=== PATIENT | female | born 1995 | race Caucasian/White ===

== ENCOUNTER 2020-04-13 13:52 | Emergency (ER) | payer OTHER, SELFPAY ==
[2020-04-13 14:00] VITALS: PULSE 88; RESP 18; TEMP 37.6
[2020-04-13 14:01] VITALS: BP 122/74; PULSE 110; RESP 16; TEMP 37.7; O2SAT 100; BMI 20.7
--- NOTE | 2020-04-13 14:12 | ED_ITS ---
HPI - General Adult General Chief complaint: General Medical Stated complaint: LUMP ON TONSILS Time Seen by Provider: 04/13/20 13:58 Source: patient Mode of arrival: ambulatory Limitations: no limitations History of Present Illness HPI narrative: Patient is a 24-year-old female with no significant past medical history who presents complaining of a small white area of her left tonsil that seems to be getting bigger over the last 2 weeks and is becoming more painful. She states she thought it was a stone as her sister has stones but she is unable to remove it and it does not feel hard enough to be a stone. She states she has no trouble swallowing but can definitely feel it there when she swallows, denies any trouble breathing. Denies fever chills cough or any other upper respiratory complaints. Patient states she has never had it evaluated because she does not have a primary care doctor. Onset (ago): year(s) Location: mouth Radiation: non-radiation Severity: moderate Severity scale (1-10): 4 Quality: dull and constant Pain Consistency: constant Relieving factors: rest Exacerbating factors: eating Associated symptoms: denies other symptoms Related Data Allergies Allergy/AdvReac Type Severity Reaction Status Date / Time No Known Allergies Allergy Verified 04/13/20 14:04 [No Known Allergies*] Review of Systems Review of Systems: See HPI Yes all other systems are reviewed and are negative [facility] Past Medical History Medical History No known health problems Social History Social History Advance Directives: No Advance Directives Information Provided: No Physical Exam Vital Signs: Vital Signs: Vital Signs Temp Pulse Resp BP Pulse Ox 04/13/20 14:01 99.9 F 110 H 16 122/74 100 04/13/20 14:00 99.6 F 88 18 Body Mass Index 20.7 Const: General: cooperative, healthy appearing, comfortable and no acute distress Nutritional Appearance: average body habitus Orientation/consciousness: patient oriented x3 Limitations: no limitations HENMT: Head: Yes normal to inspection Ears: hearing grossly normal bilate rally General nose exam: Normal external nose present Face and sinus: Yes normal facial exam Mouth: Normal oral and palatal mucosa present, lip normal, tongue normal, moist mucous membranes, no drooling, No mouth trauma, no muffled voice and no trismus Mouth/tongue images: 1. 0.5 cm round soft area, white in color, no bleeding, no evidence of infection Teeth and gingiva: dentition normal Eyes: General: appearance normal, both eyes and all related structures Resp: Effort & Inspection: normal respiratory effort and able to speak in complete sentences Skin: General skin exam: no rashes or lesions noted Neuro: General: patient oriented x3 Course Course Course Narrative: 24-year-old female with no significant past medical history presenting with small white area on left tonsil which has been there for at least a year but is getting more painful over the past 2 weeks. Patient has no PCP. Strep swab is negative. After a short discussion, I advised she should follow-up with an ENT specialist. Medical Decision Making Differential Diagnosis Differential Diagnosis: strep, tonsil cyst, tonsil stone, tonsil abscess or cancer less likely Lab Data Lab results reviewed: Yes I reviewed the patient's lab results. Lab results narrative: Name: Eleonora Chapman Age/Sex: 24/F : 1995 Unit#: [id number] Attend Dr: Naheed Leach MD Re04/13/20 Status: [facility] Specimen: [id number] Collected: 04/13/20 Status: RES Req#: [id number] Received: 04/13/20 Source: Throat Sp Desc: Subm Dr: CHARANJIT HIDALGO Ordered: Strep A Screen, Throat Culture Procedure Result Verified Site Rapid Strep A Screen Final 04/13/20 Rapid Strep A Screen Negative A negative screen result does not rule out the presence of low numbers of Group A Beta-hemolytic streptococci. Culture confirmation of a negative Rapid Strep A Screen will be performed automatically. Throat Culture PENDING Discharge Plan Discharge Clinical Impression: Tonsil pain Patient Disposition: Home, Self-Care Additional Instructions: Follow-up with healthcare is very important! I have also provided you with a list of primary care doctors. It is important to establish care with one. Referrals: Zane Cota [Physician] - 2 days Interventions: ED Discharge Assessment Last Done: 04/13/20 14:45 Discharge Date/Time: 04/13/20 14:45
== END 2020-04-13 14:45 | disposition home or self-care (01) ==
PROVIDERS: Emergency Provider Emergency Medicine
DX: J03.90 Acute tonsillitis, unspecified (principal)
CPT/HCPCS: 87071; 87147; 99283

== ENCOUNTER 2020-07-15 12:44 | Outpatient (REF) | payer SELFPAY ==
--- NOTE | 2020-07-15 | US_ITS ---
EXAMINATION: US DIAGNOSTIC ULTRASOUND BREAST, RIGHT US DIAGNOSTIC ULTRASOUND BREAST, LEFT CLINICAL INFORMATION: 24-year-old with palpable mass inferior lateral right breast for approximately 6 months with associated tenderness. Recent palpable area of concern also noted upper outer left breast. No prior breast imaging. No known family history breast cancer. COMPARISON: None (current study represents initial baseline exam). TECHNIQUE: Ultrasound of each breast is targeted to the areas of clinical concern, left upper outer quadrant and right lower outer quadrant. Grayscale imaging and color Doppler are performed without and with harmonics. Patient is able to point to the areas of concern at time of imaging. FINDINGS: Right: There is an oval hypoechoic mass 7:00 position 4 cm from nipple at site of palpable concern residing just beneath the skin measuring approximately 1.3 x 1.2 x 0.7 cm. Lesion is wider than tall. There is no increased or decreased through transmission of sound or hyperemia. No skin thickening or edema tracking in soft tissue planes. Left: There is no focal suspicious finding. There is no cystic or solid mass, architectural abnormality, duct ectasia, or edema in the soft tissue planes. No ultrasound correlate for patient's symptoms. Results are discussed with the patient at time of visit. 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 Management options discussed including serial surveillance as well as ultrasound-guided core sampling. Patient prefers core biopsy. There is no ultrasound correlate for finding on left. Patient may consider further evaluation with surgeon. US/US breast LT limited IMPRESSION: 1. Right: Solid mass at site of clinical palpable concern 7:00 position measuring 1.3 cm, possibly fibroadenoma. 2. Left: Unremarkable. No ultrasound correlate for patient's clinical concern. ASSESSMENT: BI-RADS 4: Suspicious (4A: Low suspicion for malignancy) RECOMMENDATION: 1. Right: Ultrasound-guided core biopsy. 2. Left: Patient should be managed based on the clinical impression. If clinically indicated, further evaluation may be considered with surgical consult. Decision to proceed with biopsy should be based on clinical grounds and degree of clinical concern.
== END 2020-07-15 12:45 | disposition home or self-care (01) ==
LOC: HO.MAMMO 12:44
PROVIDERS: PCP Hospitalist; Visit Provider Hospitalist
DX: N63.21 Unspecified lump in the left breast, upper outer quadrant (principal)
CPT/HCPCS: 76642

== ENCOUNTER 2020-08-13 09:13 | Outpatient (REF) | payer OTHER, SELFPAY ==
--- NOTE | ~2020-08-13 | MM_ITS ---
EXAMINATION: ULTRASOUND GUIDED CORE BIOPSY BREAST, RIGHT POST PROCEDURE DIGITAL MAMMOGRAM, RIGHT CLINICAL INFORMATION: Palpable concern lower outer right breast with associated tenderness. Hypoechoic lesion on targeted ultrasound, suspect fibroadenoma. Age 24. COMPARISON: Targeted ultrasound breast 07/15/2020. FINDINGS: Proper informed consent is obtained from the patient after discussion of the procedure, potential risks and complications, and alternatives, including serial follow-up ultrasound. Patient was given an opportunity for questions. The patient appeared to understand. The patient consented to the procedure and signed the consent form. GUIDANCE: Ultrasound-guided; aseptic technique. LESION: Hypoechoic lesion 7:00 position 4 cm from nipple 1.3 cm. APPROACH: Lateral medial. ANESTHESIA: 7 mL 1% lidocaine. DERMATOTOMY: Single skin marti dermatotomy performed. NEEDLE: 14-gauge Achieve core biopsy device with 13.5-gauge co-axial guide needle. CORES: 5. CLIP: HydroMARK; shape: butterfly. POST PROCEDURE UNILATERAL DIGITAL MAMMOGRAM: The post biopsy mammogram is performed in separate room using separate digital mammography equipment from the biopsy procedure. Exaggerated CC and MLO x2 views are obtained. views are obtained. The breasts are heterogeneously dense, which may obscure small masses (breast composition category: c). The clip marker is not visualized within the [id number]. There is no gross hematoma. As the clip marker is visible at time of ultrasound-guided deployment, additional mammography not performed. The patient tolerated the procedure well. No immediate complications. Home instructions reviewed with the patient. Final pathology results are pending. MM/MM diagnostic mammo unilat RT IMPRESSION: 1. Status post ultrasound-guided core biopsy right breast. 2. Clip placed: HydroMARK; shape: butterfly. 3. Pathology pending. An addendum report will be issued.
== END 2020-08-13 09:14 | disposition home or self-care (01) ==
LOC: HO.MAMMO 09:13
PROVIDERS: Visit Provider Surgery
DX: N63.13 Unspecified lump in the right breast, lower outer quadrant (principal); N64.4 Mastodynia; M79.7 Fibromyalgia
CPT/HCPCS: 19083; 77065; 88305

== ENCOUNTER 2020-11-28 14:13 | Outpatient (REF) | payer OTHER, SELFPAY ==
[2020-11-28 17:25] LABS: HCG Quantitative 5 mIU/mL
== END 2020-11-28 14:14 | disposition home or self-care (01) ==
LOC: HO.HMGCLDS 14:13
PROVIDERS: PCP Hospitalist; Visit Provider Nurse Practitioner Family
DX: N64.4 Mastodynia (principal); Z32.01 Encounter for pregnancy test, result positive
CPT/HCPCS: 36415; 84702

== ENCOUNTER 2020-12-03 16:34 | Outpatient (REF) | payer OTHER, SELFPAY ==
[2020-12-03 18:07] LABS: HCG Quantitative < 2 mIU/mL
== END 2020-12-03 16:35 | disposition home or self-care (01) ==
LOC: HO.LAB 16:34
PROVIDERS: PCP Hospitalist; Visit Provider Family Medicine
DX: N92.6 Irregular menstruation, unspecified (principal)
CPT/HCPCS: 36415; 84702

== ENCOUNTER 2021-01-05 20:44 | Emergency (ER) | payer OTHER, SELFPAY ==
[2021-01-05 20:56] VITALS: BP 124/57; PULSE 81; RESP 18; TEMP 36.4; O2SAT 96; BMI 21.7
[2021-01-05 21:18] LABS: Glucose Urine UA NEG (NEG); Leukocyte Esterase Urine NEG (NEG); Nitrite Urine NEG (NEG); Urine Blood NEG (NEG); Urine Ketones NEG (NEG); Urine Protein NEG (NEG-TRACE)
[2021-01-05 21:21] LABS: Appearance Urine CLEAR; Color Urine YELLOW
[2021-01-05 23:08] LABS: UPreg QC Valid YES; Urine Pregnancy NEGATIVE (NEGATIVE)
[2021-01-05 23:10] LABS: MANUAL DIFF FLAG NO
[2021-01-05 23:11] LABS: Basophils Percent Auto 0.5 % (0-2); Eosinophils Absolute Auto 0.1 X10*3/uL (0.0-0.4); Eosinophils Percent Auto 2.1 % (0-4); Hematocrit 34.9 % (37-47); Hemoglobin 11.5 g/dl (12.0-16.0); Imm Gran Abs Auto 0.01 X10*3/uL (0.00-0.03); Imm Gran Pct Auto 0.2 % (0.0-0.4); Lymphocytes Absolute Auto 2.3 X10*3/uL (1.2-4.9); Lymphocytes Percent Auto 53.4 % (20-40); Mean Corpuscular Hemoglobin 28.3 pg (27.0-33.0); Mean Platelet Volume 10.4 fL (9.4-12.3); Monocytes Absolute Auto 0.4 X10*3/uL (0.1-1.2); Monocytes Percent Auto 9.1 % (2-11); Neutrophils Absolute Auto 1.5 X10*3/uL (2.0-8.3); Neutrophils Percent Auto 34.7 % (45-73); Platelet Count 208 X10*3/uL (160-400); Red Blood Count 4.06 X10*6/uL (4.20-5.50); Red Cell Distribution Width 12.3 % (11.0-16.0); White Blood Count 4.3 X10*3/uL (4.8-10.8)
[2021-01-05 23:37] LABS: Alanine Aminotransferase 12 U/L (0-31); Albumin Level 4.2 g/dL (3.5-5.0); Alkaline Phosphatase 59 U/L (39-117); Anion Gap 9 (12-20); Aspartate Amino Transferase 16 U/L (5-31); Bilirubin Total 0.4 mg/dL (0.0-1.0); Blood Urea Nitrogen 8 mg/dL (9-16); Calcium 9.5 mg/dL (8.4-10.2); Carbon Dioxide 29 mmol/L (22-29); Chloride 107 mmol/L (96-108); Creatinine Clr Calc Pharmacy 87.6; Estimated Glomerular Filt Rate > 60; Glucose Random 88 mg/dL (60-115); Potassium 3.6 mmol/L (3.3-5.1); Sodium 141 mmol/L (135-145); Total Protein 6.7 g/dL (6.5-8.0)
--- NOTE | 2021-01-06 00:27 | ED.GENADULT ---
HPI - General Adult General Chief complaint: General Medical Stated complaint: ovary pain Time Seen by Provider: 01/06/21 00:27 Source: patient Mode of arrival: ambulatory Limitations: no limitations History of Present Illness HPI narrative: Patient complaining of left lower abdominal pain off and on for last 4 months radiating to her left leg feels that she might have ovarian problem has not seen her doctor yet no difficulty in urination no fever no chills bowel tones are normal no nausea no vomiting patient eating drinking fine denies any back pain Related Data Previous Rx's Medication Instructions Recorded vitamin no.102-iron 90 1 cap PO DAILY 30 Days #30 cap 12/04/20 mg-folate 1 mg-dha 200 mg capsule ibuprofen 600 mg PO Q6H PRN #20 tab 01/06/21 Allergies Allergy/AdvReac Type Severity Reaction Status Date / Time No Known Allergies Allergy Verified 01/05/21 20:56 [No Known Allergies*] Review of Systems Review of Systems: Yes all other systems are reviewed and are negative [facility] Past Medical History Medical History No known health problems Social History Social History Alcohol intake: current Alcohol intake frequency: holidays/special occasions only Advance Directives: No Advance Directives Information Provided: No Physical Exam Vital Signs: Vital Signs: Last Vital Signs Temp 97.5 F 01/05/21 20:56 Pulse 81 01/05/21 20:56 Resp 18 01/05/21 20:56 BP 124/57 L 01/05/21 20:56 Pulse Ox 96 01/05/21 20:56 Body Mass Index 21.7 Appearance: Alert. Oriented X3. No acute distress. Eyes: PERRLA, No Nystagmus ENT: Pharynx normal. Oral Mucosa moist Neck: Normal inspection. Neck supple. CVS: Normal heart rate and rhythm. Pulses normal. Respiratory: No respiratory distress. Equal air entry bilateral, Abdomen: Soft and nontender. No percussion tenderness in pelvic area Bowel sounds are present, no mass palpable, no CVA tenderness back : No spinal tenderness range of movements full SLR negative bilaterally Skin: Skin warm and dry. Normal skin color. Normal skin turgor. Extremities: No lower extremity edema. No calf tenderness Neuro: Oriented X 3. No motor deficit. Medical Decision Making MDM Narrative Medical decision making narrative: Patient nonspecific pain in the lower abdomen going to the left leg, labs are stable white counts are normal urine is negative on exam the patient does not have any tenderness patient advised to follow with PCP for musculoskeletal pain Lab Data Lab results reviewed: Yes I reviewed the patient's lab results. Result diagrams: 01/05/21 23:00 01/05/21 23:00 Labs: Lab Results 01/05/21 01/05/21 01/05/21 Range/Units 21:10 22:48 23:00 WBC 4.3 L (4.8-10.8) X10*3/uL RBC 4.06 L (4.20-5.50) X10*6/uL Hgb 11.5 L (12.0-16.0) g/dl Hct 34.9 L (37-47) % MCV 86.0 (80-98) fL MCH 28.3 (27.0-33.0) pg MCHC 33.0 (31.0-35.0) g/dl RDW 12.3 (11.0-16.0) % Plt Count 208 (160-400) X10*3/uL MPV 10.4 (9.4-12.3) fL Immature Gran % (Auto) 0.2 (0.0-0.4) % Neut % (Auto) 34.7 L (45-73) % Lymph % (Auto) 53.4 H (20-40) % [place] % (Auto) 9.1 (2-11) % Eos % (Auto) 2.1 (0-4) % Baso % (Auto) 0.5 (0-2) % Lymph # (Auto) 2.3 (1.2-4.9) X10*3/uL [place] # (Auto) 0.4 (0.1-1.2) X10*3/uL Eos # (Auto) 0.1 (0.0-0.4) X10*3/uL Baso # (Auto) 0.0 (0.0-0.2) X10*3/uL Abs Immat Gran (auto) 0.01 (0.00-0.03) X10*3/uL Absolute Neuts (auto) 1.5 L (2.0-8.3) X10*3/uL Absolute Nucleated RBC 0.000 (0.0-0.012) X10*3/uL Nucleated RBC % (auto) 0.0 (0.0-0.2) /100WBC Sodium (135-145) mmol/L Potassium (3.3-5.1) mmol/L Chloride (96-108) mmol/L Carbon Dioxide (22-29) mmol/L Anion Gap (12-20) BUN (9-16) mg/dL Creatinine (0.5-1.4) mg/dL Estim Creat Clear Calc Estimated GFR Random Glucose (60-115) mg/dL Calcium (8.4-10.2) mg/dL Total Bilirubin (0.0-1.0) mg/dL AST (5-31) U/L ALT (0-31) U/L Alkaline Phosphatase (39-117) U/L Total Protein (6.5-8.0) g/dL Albumin (3.5-5.0) g/dL Urine Color YELLOW Urine Appearance CLEAR Urine pH 6.0 (5.0-8.0) Ur Specific [place] 1.010 (1.005-1.025) Urine Protein NEG (NEG-TRACE) MG/DL Urine Glucose (UA) NEG (NEG) MG/DL Urine Ketones NEG (NEG) MG/DL Urine Blood NEG (NEG) Urine Nitrite NEG (NEG) Ur Leukocyte Esterase NEG (NEG) Urine Test NEGATIVE (NEGATIVE) 01/05/21 Range/Units 23:00 WBC (4.8-10.8) X10*3/uL RBC (4.20-5.50) X10*6/uL Hgb (12.0-16.0) g/dl Hct (37-47) % MCV (80-98) fL MCH (27.0-33.0) pg MCHC (31.0-35.0) g/dl RDW (11.0-16.0) % Plt Count (160-400) X10*3/uL MPV (9.4-12.3) fL Immature Gran % (Auto) (0.0-0.4) % Neut % (Auto) (45-73) % Lymph % (Auto) (20-40) % [place] % (Auto) (2-11) % Eos % (Auto) (0-4) % Baso % (Auto) (0-2) % Lymph # (Auto) (1.2-4.9) X10*3/uL [place] # (Auto) (0.1-1.2) X10*3/uL Eos # (Auto) (0.0-0.4) X10*3/uL Baso # (Auto) (0.0-0.2) X10*3/uL Abs Immat Gran (auto) (0.00-0.03) X10*3/uL Absolute Neuts (auto) (2.0-8.3) X10*3/uL Absolute Nucleated RBC (0.0-0.012) X10*3/uL Nucleated RBC % (auto) (0.0-0.2) /100WBC Sodium 141 (135-145) mmol/L Potassium 3.6 (3.3-5.1) mmol/L Chloride 107 (96-108) mmol/L Carbon Dioxide 29 (22-29) mmol/L Anion Gap 9 L (12-20) BUN 8 L (9-16) mg/dL Creatinine 0.74 (0.5-1.4) mg/dL Estim Creat Clear Calc 87.6 Estimated GFR > 60 Random Glucose 88 (60-115) mg/dL Calcium 9.5 (8.4-10.2) mg/dL Total Bilirubin 0.4 (0.0-1.0) mg/dL AST 16 (5-31) U/L ALT 12 (0-31) U/L Alkaline Phosphatase 59 (39-117) U/L Total Protein 6.7 (6.5-8.0) g/dL Albumin 4.2 (3.5-5.0) g/dL Urine Color Urine Appearance Urine pH (5.0-8.0) Ur Specific [place] (1.005-1.025) Urine Protein (NEG-TRACE) MG/DL Urine Glucose (UA) (NEG) MG/DL Urine Ketones (NEG) MG/DL Urine Blood (NEG) Urine Nitrite (NEG) Ur Leukocyte Esterase (NEG) Urine Test (NEGATIVE) Discharge Plan Discharge Clinical Impression: Musculoskeletal leg pain Qualifiers: Laterality: left Qualified Code(s): M79.605 - Pain in left leg Patient Disposition: Home, Self-Care Instructions: Musculoskeletal Pain (ED) Additional Instructions: Drink plenty of fluids Ibuprofen for pain Follow with PCP Prescriptions: New ibuprofen 600 mg tablet 600 mg PO Q6H PRN (Reason: pain) Qty: 20 RF: 0 No Action PNV [id number] 90 mg iron- 1 mg-200 mg capsule 1 cap PO DAILY 30 Days Qty: 30 RF: 3 Stand Alone Forms: Work/School Release
[2021-01-06 01:07] VITALS: BP 104/71; PULSE 73; RESP 16; O2SAT 100
== END 2021-01-06 01:14 | disposition home or self-care (01) ==
PROVIDERS: Emergency Provider Internal Medicine; PCP Hospitalist
DX: M79.605 Pain in left leg (principal); R10.32 Left lower quadrant pain
CPT/HCPCS: 36415; 80053; 81003; 81025; 85025; 99283; 99284

== ENCOUNTER 2021-01-29 10:18 | Outpatient (REF) | payer OTHER, SELFPAY ==
[2021-01-29 11:45] LABS: HCG Quantitative 2659 mIU/mL
== END 2021-01-29 10:19 | disposition home or self-care (01) ==
LOC: HO.HMGCLDS 10:18
PROVIDERS: PCP Hospitalist; Visit Provider Hospitalist
DX: N91.2 Amenorrhea, unspecified (principal)
CPT/HCPCS: 36415; 84702

== ENCOUNTER 2021-02-11 13:02 | Outpatient (REF) | payer OTHER, SELFPAY ==
--- NOTE | ~2021-02-11 | US_ITS ---
EXAMINATION: US OBSTETRICAL ULTRASOUND CLINICAL INFORMATION: Encounter for . COMPARISON: None LMP: 12/27/2020 Gestational age by maternal dates is 6 weeks 4 days. Estimated date of delivery by maternal dates is 10/03/2021. TECHNIQUE: Transabdominal ultrasound of the pelvis was performed. FINDINGS: There is a single, intrauterine gestational sac with a visible yolk sac, embryo/fetus, and cardiac activity. There is no significant subchorionic hemorrhage or hematoma. HR: 136 beats per minute CRL (crown rump length): 0.52 cm (6 weeks and 2 days +/- 4 days) LOULOU (estimated date of delivery): 10/05/2021 +/- 4 days MATERNAL ADNEXA: The right maternal ovary measures 2.4 x 1.9 x 1.2 cm. The left maternal ovary measures 4.0 x 4.2 x 4.1 cm. There is an anechoic cysts measuring 3.4 x 3.0 x 3.2 cm. There is no significant maternal adnexal mass. No maternal pelvic ascites. US/US OB <= 14 weeks fetus IMPRESSION: 1. Single, intrauterine gestation with ultrasound gestational age of 6 weeks 2 days +/- 4 days. 2. Estimated date of delivery is 10/05/2021 +/- 4 days. 3. No maternal adnexal mass or pelvic ascites.
== END 2021-02-11 13:03 | disposition home or self-care (01) ==
LOC: HO.LAB 13:02
PROVIDERS: PCP Hospitalist; Visit Provider Advanced Practice Midwife
DX: Z34.91 Encounter for supervision of normal pregnancy, unspecified, first trimester (principal)
CPT/HCPCS: 36415; 76801; 81025; 84702

== ENCOUNTER 2022-07-02 11:00 | Outpatient (RCR) | payer MEDICAID, SELFPAY | END 2022-08-11 10:52 | disposition home or self-care (01) | LOC: HO.PT 11:00 | PROVIDERS: PCP Family Medicine; Visit Provider Advanced Practice Midwife | DX: R10.2 Pelvic and perineal pain (principal); N94.10 Unspecified dyspareunia | CPT/HCPCS: 97110; 97140; 97161 ==

== ENCOUNTER 2023-12-01 09:26 | Outpatient (REF) | payer MEDICAID, SELFPAY ==
[2023-12-01 14:06] LABS: MANUAL DIFF FLAG NO
[2023-12-01 14:19] LABS: Estimated Average Glucose 91 mg/dL; Hemoglobin A1c % 4.8 % (<6.0)
[2023-12-01 14:21] LABS: Basophils Percent Auto 0.9 % (0-2); Eosinophils Absolute Auto 0.1 X10*3/uL (0.0-0.4); Eosinophils Percent Auto 2.1 % (0-4); Hematocrit 35.2 % (37.0-47.0); Hemoglobin 11.4 g/dl (12.0-16.0); Imm Gran Abs Auto 0.01 X10*3/uL (0.00-0.03); Imm Gran Pct Auto 0.3 % (0.0-0.4); Lymphocytes Absolute Auto 1.4 X10*3/uL (1.2-4.9); Lymphocytes Percent Auto 42.3 % (20-40); Mean Corpuscular HGB Conc 32.4 g/dl (31.0-35.0); Mean Corpuscular Hemoglobin 28.1 pg (27.0-33.0); Mean Corpuscular Volume 86.7 fL (80.0-98.0); Mean Platelet Volume 11.5 fL (9.4-12.3); Monocytes Absolute Auto 0.4 X10*3/uL (0.1-1.2); Monocytes Percent Auto 11.5 % (2-11); Neutrophils Absolute Auto 1.4 x10*3/uL (2.0-8.3); Neutrophils Percent Auto 42.9 % (45-73); Platelet Count 182 X10*3/uL (160-400); Red Blood Count 4.06 X10*6/uL (4.20-5.50); Red Cell Distribution Width 12.8 % (11.0-16.0); White Blood Count 3.3 X10*3/uL (4.8-10.8)
[2023-12-01 14:30] LABS: Alanine Aminotransferase 9 U/L (0-31); Albumin Level 3.9 g/dL (3.5-5.0); Alkaline Phosphatase 41 U/L (39-117); Anion Gap 12 (12-20); Aspartate Amino Transferase 16 U/L (5-31); Bilirubin Total 0.5 mg/dL (0.0-1.0); Blood Urea Nitrogen 14 mg/dL (9-16); Calcium 8.9 mg/dL (8.4-10.2); Carbon Dioxide 24 mmol/L (22-29); Chloride 108 mmol/L (96-108); Estimated Glomerular Filt Rate > 60; Glucose Random 75 mg/dL (60-115); Iron 124 mcg/dL (30-160); Percent Iron Saturation 60 % (15-50); Sodium 140 mmol/L (135-145); Total Iron Binding Capacity 207 mcg/dL (228-428); Total Protein 6.3 g/dL (6.5-8.0); Unsaturated Iron Binding 83 ug/dL
[2023-12-01 14:47] LABS: TSH reflex Free T4 1.93 uIU/mL (0.32-4.0)
[2023-12-01 14:54] LABS: Folate 6.7 ng/mL (> or = 4.0); Vitamin B12 264 pg/mL (200-900)
== END 2023-12-01 09:27 | disposition home or self-care (01) ==
LOC: HO.CHCLDS 09:26
PROVIDERS: Visit Provider Internal Medicine
DX: R53.82 Chronic fatigue, unspecified (principal)
CPT/HCPCS: 36415; 80053; 82607; 82746; 83036; 83540; 84443; 85025